=== PATIENT | male | born 1975 | race Two or more races ===

== ENCOUNTER 2017-08-28 09:42 | Emergency (ER) | payer SELFPAY ==
[~2017-08-28] VITALS: Ht 177.8 cm; Wt 95.3 kg
[2017-08-28 09:52] VITALS: BP 132/92
== END 2017-08-28 10:57 | disposition home or self-care (01) ==
LOC: ER 09:42
DX: J02.9 Acute pharyngitis, unspecified (principal); B00.1 Herpesviral vesicular dermatitis
CPT/HCPCS: 71046

== ENCOUNTER 2020-06-08 16:49 | Emergency (ER) | payer MEDICAID, OTHER ==
[~2020-06-08] VITALS: Ht 177.8 cm; Wt 102.1 kg
[2020-06-08 21:15] VITALS: BP 129/90
== END 2020-06-08 21:24 | disposition home or self-care (01) ==
LOC: ER 16:55
DX: U07.1 COVID-19 (principal)
CPT/HCPCS: 36415; 71045; 87426; 99284; C9803; U0003